=== PATIENT | male | born 1960 | race African-American/Black ===

== ENCOUNTER 2018-10-21 00:28 | Emergency (ER) | payer MEDICARE ==
[~2018-10-21] VITALS: Ht 162.6 cm; Wt 73.0 kg
[~2018-10-21 00:28] MED LIST: AUGMENTIN500TAB PO; METFORMIN500 MG PO
[2018-10-21] MEDS ORDERED: MOTRIN800 MG PO (00:48)
[2018-10-21] MEDS ORDERED: AMOXICILLIN500 MG PO (00:48)
[2018-10-21] MEDS ORDERED: TRAMADOL HCL50 MG PO (00:48)
[2018-10-21 01:00] VITALS: BP 137/89
== END 2018-10-21 00:58 | disposition home or self-care (01) ==
LOC: ED 00:28
DX: K02.9 Dental caries, unspecified (principal); K04.7 Periapical abscess without sinus; E11.9 Type 2 diabetes mellitus without complications; F17.210 Nicotine dependence, cigarettes, uncomplicated

== ENCOUNTER 2019-07-27 05:27 | Observation (INO) | payer MEDICARE ==
[~2019-07-27] VITALS: Ht 157.5 cm; Wt 67.6 kg
[2019-07-27] VITALS (7 sets, daily range): BP systolic 130–167; BP diastolic 76–91
[~2019-07-27 05:27] MED LIST changes: +AMOXICILLIN500 MG PO; +MOTRIN800 MG PO; +TRAMADOL HCL50 MG PO
--- NOTE | 2019-07-27 05:40 | NUR ---
PT. TO ROOM 10 VIA EMS WITH C/O HAVING BRONCHITIS AND AWAKINING THIS AM WITH SOB. BILATERAL LUNG STEEL ARE CTA, NO EDEMA NOTED TO BLE. O2 SAT ON RA 97%. EMS ADMINISTERED A BREATHING TX AND DEXAMETASONE IVP.
--- NOTE | 2019-07-27 05:56 | NUR ---
IV SOLU-MEDROL GIVEN PER MD ORDER.
[2019-07-27 06:31] LABS: HEMOGLOBIN 14.4 g/dl (14.0-18.0); IMMATURE GRANULOCYTES 0.3 % (0.0-5.0); MEAN CELL VOLUME 84.7 fL CALC (80.0-100.0); MEAN CORPUSCULAR HGB 27.1 pG CALC (26.0-32.0); NEUT# 2.53 thou/uL (1.82-7.42); RED BLOOD COUNT 5.31 mill/uL (4.70-6.10); RED CELL DISTRI WIDTH 13.5 % (11.5-15.5)
[2019-07-27 06:48] LABS: ALBUMIN 4.3 g/dL (3.2-5.0); ALKALINE PHOSPHATASE 132 u/l (38-126); ANION GAP 13 (6-22 (CALC)); BILIRUBIN, TOTAL 0.7 mg/dL (0.0-1.4); BUN 12 mg/dL (9-20); BUN/CREATININE RATIO 17 (12-20 (CALC)); CARBON DIOXIDE 28 mmol/l (22-30); CHLORIDE 99 mmol/l (95-108); CREATININE 0.7 mg/dL (0.7-1.3); GFR > 60 ML/MIN (>=60 (CALC)); GFR FOR AFR.AMER. > 60 ML/MIN (>=60 (CALC)); POTASSIUM 4.6 mmol/l (3.5-5.1); SGOT/AST 41 u/l (17-59); SODIUM 136 mmol/l (137-146); TOTAL PROTEIN 9.1 g/dL (6.3-8.2)
--- NOTE | 2019-07-27 06:58 | NUR ---
REPORT TO SUSHMA LEUNG.
[2019-07-27 07:00] LABS: MYOGLOBIN 48 ng/mL (0 - 121)
--- NOTE | 2019-07-27 07:00 | NUR ---
REPORT RECEIVED FROM XOCHITL PETER. EDP AT BEDSIDE TO DISCUSS RESULTS AND POSSIBLE ADMIT.
--- NOTE | 2019-07-27 07:01 | NUR ---
O2 SAT 93% PT. PLACED ON 2 LIT/NC. O2 SAT NOW 98%.
--- NOTE | 2019-07-27 07:40 | NUR ---
PATIENT INFORMED OF ADMIT STATUS AND IV ANTIBIOTICS. VERBAL UNDERSTANDING. WAITING ON ROOM NUMBER.
--- NOTE | 2019-07-27 08:00 | NUR ---
PATIENT SET UP WITH BREAKFAST TRAY.
--- NOTE | 2019-07-27 08:39 | NUR ---
ATTEMPT MADE TO CALL REPORT TO ICU, NO ANSWER. WILL CALL BACK.
--- NOTE | 2019-07-27 09:08 | NUR ---
SECOND ATTEMPT MADE TO CALL REPORT. NO ANSWER. CHARGE NURSE INFORMED.
--- NOTE | 2019-07-27 09:20 | NUR ---
REPORT GIVEN TO XOCHITL PHILLIPS.
--- NOTE | 2019-07-27 09:30 | NUR ---
PATIENT TRANSPORTED TO ICU VIA STRETCHER WITH MONITOR IN PLACE. XOCHITL PHILLIPS AT BEDSIDE. PATIENT IN STABLE CONDITION. CARE RELINQUISHED.
--- NOTE | 2019-07-27 09:30 | NUR ---
PT ADMITTED TO ICU BED 6 FOR MS/OF TO THE CARE OF DR. THOMAS FOR PNEUMONIA, COPD AND HYPOXIA. PT TRANSFERRED SELF TO BED FROM STRETCHER WITH STEADY GAIT. U/A OBTAINED/ PT A&OX4, ABLE TO MAKE NEEDS KNOWN. SA02@99% ON 2LPM VIA NC. RESPIRATIONS EVEN/UNLABORED, LS CLEAR THROUGHOUT. ABDOMEN SOFT, NON-TENDER. LBM 1-1-20. PT ORIENTED TO CALL LIGHT, ROOM AND UNIT. CALL LIGHT IN REACH. WILL MONITOR.
--- NOTE | 2019-07-27 10:00 | NUR ---
JOSH SALAZAR AT BEDSIDE FOR PAPERWORK/CONSULTATION
--- NOTE | 2019-07-27 10:47 | NUR ---
RT AT BEDSIDE FOR TX
[2019-07-27 10:51] LABS: URINE BILIRUBIN - DIPSTICK NEGATIVE (NEGATIVE); URINE BLOOD DIPSTICK NEGATIVE (NEGATIVE); URINE COLOR YELLOW; URINE GLUCOSE - DIPSTICK >=1000 mg/dL (NEGATIVE); URINE KETONE NEGATIVE (NEGATIVE); URINE LEUK ESTERASE NEGATIVE (NEGATIVE); URINE NITRITE - DIPSTICK NEGATIVE (Negative); URINE PH 6.5 (4.5-8.0); URINE PROTEIN - DIPSTICK NEGATIVE (NEG-TRACE); URINE UROBILINOGEN - DIPSTICK 0.2 E.U./dL (0.2)
--- NOTE | 2019-07-27 12:30 | NUR ---
PT RESTING IN BED WATCHING TV. PT DENIES SOB OR DISTRESS AT THIS TIME. REMAINS AFEBRILE.
--- NOTE | 2019-07-27 14:00 | NUR ---
PT GIVEN A COKE PER REQUEST.
--- NOTE | 2019-07-27 14:48 | NUR ---
RT AT BEDSIDE FOR TX.
--- NOTE | 2019-07-27 16:05 | NUR ---
PT GF CALLED WITH [employer], UPDATE GIVEN.
--- NOTE | 2019-07-27 20:00 | NUR ---
REPORT RECEIVED. ROUNDS AND ASSESSMENT COMPLETED AND DOCUMENTED. DENIES PAIN OR HAS ANY NEEDS AT THIS TIME. BREATH SOUNDS CLEAR AND DIMINISHED WITH O2 SAT 97% ON 2LNC. STEROID AND NEB THERAPY CONTINUE. PT REMAINS MED/SURG TELE PT. STATES DISCHARGE PLAN IS FOR AM PER HIS MD.
[2019-07-28 00:01] VITALS: BP 132/79
--- NOTE | 2019-07-28 00:06 | NUR ---
VITAL SIGNS REMAIN STABLE. RESTING WITH EYES CLOSED EASILY AROUSES FOR NECESSARY INTERVENTIONS. TAKING PO FLUIDS WELL AND VOIDS AT BEDSIDE URINAL.
[2019-07-28 03:57] VITALS: BP 167/83
--- NOTE | 2019-07-28 03:58 | NUR ---
RESTING QUIETLY MOST OF NIGHT. AWAKENS TO TAKE SIPS AND VOID. VSS AND AFEBRILE.
--- NOTE | 2019-07-28 08:00 | NUR ---
PT IS AWAKE, ALERT, ORIENTED X 3. LUNGS ARE CLEAR, 2 LPM NC. NO COMPLAINT OF SHORTNESS OF BREATH OR OTHERWISE. PT HOPES FOR DISCHARGE TODAY.
[2019-07-28 08:39] VITALS: BP 133/75
[2019-07-28] MEDS ORDERED: GLIPIZIDE10 M2 PO (09:30)
[2019-07-28] MEDS ORDERED: ATORVASTATIN CA10 MG PO (09:31)
[2019-07-28] MEDS ORDERED: LISINOPRIL10 MG PO (09:31)
[2019-07-28] MEDS ORDERED: CYCLOBENZAPR5 MG PO (09:31)
[2019-07-28] MEDS ORDERED: PREDNISONE10 MG PO (09:32)
[2019-07-28] MEDS ORDERED: METFORMIN1000 MG PO (09:32)
[2019-07-28] MEDS ORDERED: LEVAQUIN750 MG PO (09:33)
[2019-07-28] MEDS ORDERED: SPIRIVA RE2.5 MCG/AC IN (09:34)
--- NOTE | 2019-07-28 10:00 | NUR ---
PT SEEN BY DR YANEZ, TO BE DISCHARGED HOME AFTER ABX. PT PROVIDED INFORMATION COUPON FOR [employer].
[2019-07-28] MEDS ORDERED: ROBITUSSIN AC10 ML PO (10:11)
--- NOTE | 2019-07-28 11:30 | NUR ---
PT HAS BEEN DISCHARGED TO HOME. PT VERBALIZES UNDERSTANDING OF DC INSTRUCTIONS, TAKEN TO LOBBY VIA WHEELCHAIR. PT LEAVES [facility] IN STABLE CONDITION.
== END 2019-07-28 11:30 | disposition home or self-care (01) ==
LOC: ED 05:27 → ED-I 06:52 → ED 07:09 → ED-I 07:10 → ICU 07:10
PROVIDERS: Emergency Medicine; Nurse Practitioner Family; ADMIT Internal Medicine; ATTEND Internal Medicine
DX: J44.1 Chronic obstructive pulmonary disease with (acute) exacerbation (principal); J18.9 Pneumonia, unspecified organism; J44.0 Chronic obstructive pulmonary disease with (acute) lower respiratory infection; E11.65 Type 2 diabetes mellitus with hyperglycemia; I10 Essential (primary) hypertension; R09.02 Hypoxemia; F17.200 Nicotine dependence, unspecified, uncomplicated; G89.29 Other chronic pain; Z79.84 Long term (current) use of oral hypoglycemic drugs

== ENCOUNTER 2022-09-18 11:26 | Emergency (ER) | payer MEDICARE ==
[~2022-09-18] VITALS: Ht 165.1 cm; Wt 50.0 kg
[2022-09-18] VITALS (12 sets, daily range): BP systolic 124–161; BP diastolic 79–117
[~2022-09-18 11:26] MED LIST changes: +ATORVASTATIN CA10 MG PO; +CYCLOBENZAPR5 MG PO; +CYCLOBENZAPRINE10 MG PO; +GLIPIZIDE10 M2 PO; +LEVAQUIN750 MG PO; +LISINOPRIL10 MG PO; +METFORMIN1000 MG PO; +METFORMIN500 M2 PO; +NAPROXEN EC500 MG PO; +NORVASC5 M1 PO; +PREDNISONE10 MG PO; +PROAIR HFA108 MCG/AC; +ROBITUSSIN AC10 ML PO; +ROSUVASTATIN CA10 MG; +SPIRIVA RE2.5 MCG/AC IN
[2022-09-18 12:08] LABS: BASO% 0.3 % (0-3); EOS% 2.3 % (0-8); HEMATOCRIT 42.6 % (39.0-50.0); HEMOGLOBIN 13.4 g/dl (14.0-18.0); IMMATURE GRANULOCYTES 0.1 % (0.0-5.0); LYMPH% 35.1 % (15-41); MEAN CELL VOLUME 87.3 fL CALC (80.0-100.0); MEAN CORPUSCULAR HGB 27.5 pG CALC (26.0-32.0); MEAN CORPUSCULAR HGB CONC 31.5 g/dL CAL (32.0-36.0); MONO% 9.1 % (2-13); NEUT# 3.68 thou/uL (1.82-7.42); NEUT% 53.1 % (42-76); RED BLOOD COUNT 4.88 mill/uL (4.70-6.10); RED CELL DISTRI WIDTH 13.7 % (11.5-15.5)
[2022-09-18 13:02] LABS: ALBUMIN 4.4 g/dL (3.2-5.0); ALKALINE PHOSPHATASE 114 u/l (38-126); ANION GAP 8 (6-22 (CALC)); BUN 14 mg/dL (8-23); BUN/CREATININE RATIO 17 (12-20 (CALC)); CARBON DIOXIDE 31 mmol/l (22-30); CHLORIDE 106 mmol/l (95-108); CREATININE 0.8 mg/dL (0.7-1.3); GFR FOR AFR.AMER. > 60 ML/MIN (>=60 (CALC)); GFR OTHER RACES > 60 ML/MIN (>=60 (CALC)); LIPASE 32 u/l (23-300); POTASSIUM 3.7 mmol/l (3.5-5.1); SGOT/AST 38 u/l (19-48); SODIUM 141 mmol/l (137-146)
[2022-09-18 13:03] LABS: BILIRUBIN, TOTAL 0.3 mg/dL (0.2-1.3)
[2022-09-18 13:47] LABS: URINE BILIRUBIN - DIPSTICK NEGATIVE (NEGATIVE); URINE BLOOD DIPSTICK NEGATIVE (NEGATIVE); URINE CLARITY CLEAR; URINE COLOR YELLOW; URINE GLUCOSE - DIPSTICK NEGATIVE (NEGATIVE); URINE KETONE NEGATIVE (NEGATIVE); URINE LEUK ESTERASE NEGATIVE (Negative); URINE NITRITE - DIPSTICK NEGATIVE (Negative); URINE PROTEIN - DIPSTICK NEGATIVE (NEG-TRACE); URINE UROBILINOGEN - DIPSTICK 0.2 E.U./dL (0.2)
[2022-09-18] MEDS ORDERED: DOXYCYCLINE100 MG PO (15:34)
[2022-09-18] MEDS ORDERED: DECADRON4 MG PO (15:34)
== END 2022-09-18 16:21 | disposition home or self-care (01) ==
LOC: ED 11:26
PROVIDERS: Emergency Medicine
DX: J44.1 Chronic obstructive pulmonary disease with (acute) exacerbation (principal); E11.9 Type 2 diabetes mellitus without complications; F17.200 Nicotine dependence, unspecified, uncomplicated; Z79.84 Long term (current) use of oral hypoglycemic drugs; Z20.822 Contact with and (suspected) exposure to COVID-19

== ENCOUNTER 2022-11-24 14:20 | Emergency (ER) | payer MEDICARE ==
[~2022-11-24] VITALS: Ht 165.1 cm; Wt 61.0 kg
[~2022-11-24 14:20] MED LIST changes: +DECADRON4 MG PO; +DOXYCYCLINE100 MG PO
[2022-11-24 14:50] LABS: BASO% 0.6 % (0-3); EOS% 2.2 % (0-8); HEMOGLOBIN 13.6 g/dl (14.0-18.0); IMMATURE GRANULOCYTES 0.1 % (0.0-5.0); LYMPH% 37.7 % (15-41); MEAN CELL VOLUME 87.9 fL CALC (80.0-100.0); MEAN CORPUSCULAR HGB 27.8 pG CALC (26.0-32.0); MEAN CORPUSCULAR HGB CONC 31.6 g/dL CAL (32.0-36.0); MONO% 8.8 % (2-13); NEUT# 3.5 thou/uL (1.82-7.42); NEUT% 50.6 % (42-76); RED BLOOD COUNT 4.89 mill/uL (4.70-6.10); RED CELL DISTRI WIDTH 13.8 % (11.5-15.5)
[2022-11-24 15:20] LABS: ALBUMIN 4.4 g/dL (3.2-5.0); ALKALINE PHOSPHATASE 116 u/l (38-126); ANION GAP 12 (6-22 (CALC)); BILIRUBIN, TOTAL 0.3 mg/dL (0.2-1.3); BUN 9 mg/dL (8-23); BUN/CREATININE RATIO 11 (12-20 (CALC)); CARBON DIOXIDE 28 mmol/l (22-30); CHLORIDE 104 mmol/l (95-108); CREATININE 0.8 mg/dL (0.7-1.3); GFR FOR AFR.AMER. > 60 ML/MIN (>=60 (CALC)); GFR OTHER RACES > 60 ML/MIN (>=60 (CALC)); POTASSIUM 3.8 mmol/l (3.5-5.1); SGOT/AST 26 u/l (19-48); SODIUM 140 mmol/l (137-146); TOTAL PROTEIN 8.1 g/dL (6.3-8.2)
[2022-11-24] MEDS ORDERED: ASPIRIN 81 LOW81 MG PO (18:56)
[2022-11-24 19:12] VITALS: BP 141/75
== END 2022-11-24 19:14 | disposition home or self-care (01) ==
LOC: ED 14:20
PROVIDERS: Nurse Practitioner
DX: R07.89 Other chest pain (principal); I10 Essential (primary) hypertension; E11.9 Type 2 diabetes mellitus without complications; E78.5 Hyperlipidemia, unspecified; J44.9 Chronic obstructive pulmonary disease, unspecified; F17.200 Nicotine dependence, unspecified, uncomplicated; R94.31 Abnormal electrocardiogram [ECG] [EKG]

== ENCOUNTER 2023-02-04 03:23 | Observation (INO) | payer MEDICARE ==
[~2023-02-04] VITALS: Ht 165.1 cm; Wt 61.0 kg
[~2023-02-04 03:23] MED LIST changes: +ASPIRIN 81 LOW81 MG PO
[2023-02-04 04:14] LABS: BASO% 0.4 % (0-3); HEMATOCRIT 38.3 % (39.0-50.0); IMMATURE GRANULOCYTES 0.7 % (0.0-5.0); LYMPH% 27.6 % (15-41); MEAN CELL VOLUME 88.5 fL CALC (80.0-100.0); MEAN CORPUSCULAR HGB 27.7 pG CALC (26.0-32.0); MEAN CORPUSCULAR HGB CONC 31.3 g/dL CAL (32.0-36.0); NEUT# 4.53 thou/uL (1.82-7.42); NEUT% 61.3 % (42-76); RED BLOOD COUNT 4.33 mill/uL (4.70-6.10); RED CELL DISTRI WIDTH 13.4 % (11.5-15.5)
[2023-02-04 04:28] LABS: ALBUMIN 3.9 g/dL (3.2-5.0); ALKALINE PHOSPHATASE 118 u/l (38-126); ANION GAP 9 (6-22 (CALC)); BUN 12 mg/dL (8-23); BUN/CREATININE RATIO 12 (12-20 (CALC)); CARBON DIOXIDE 28 mmol/l (22-30); CHLORIDE 108 mmol/l (95-108); GFR FOR AFR.AMER. > 60 ML/MIN (>=60 (CALC)); GFR OTHER RACES > 60 ML/MIN (>=60 (CALC)); POTASSIUM 4.1 mmol/l (3.5-5.1); SODIUM 141 mmol/l (137-146); TOTAL PROTEIN 7.2 g/dL (6.3-8.2)
[2023-02-04 04:32] LABS: BILIRUBIN, TOTAL 0.5 mg/dL (0.2-1.3); SGOT/AST 54 u/l (19-48)
[2023-02-04 07:33] VITALS: BP 141/80
[2023-02-04 07:44] VITALS: BP 141/80
[2023-02-04 10:58] VITALS: BP 139/83
[2023-02-04 14:38] VITALS: BP 139/75
[2023-02-04 18:55] VITALS: BP 132/70
[2023-02-04 23:56] VITALS: BP 136/79
[2023-02-05 04:39] VITALS: BP 133/77
[2023-02-05 05:41] LABS: HEMATOCRIT 38.2 % (39.0-50.0); HEMOGLOBIN 11.9 g/dl (14.0-18.0); MEAN CELL VOLUME 87.4 fL CALC (80.0-100.0); MEAN CORPUSCULAR HGB 27.2 pG CALC (26.0-32.0); MEAN CORPUSCULAR HGB CONC 31.2 g/dL CAL (32.0-36.0); RED BLOOD COUNT 4.37 mill/uL (4.70-6.10); RED CELL DISTRI WIDTH 13.3 % (11.5-15.5)
[2023-02-05 06:06] LABS: ANION GAP 11 (6-22 (CALC)); BUN 12 mg/dL (8-23); BUN/CREATININE RATIO 18 (12-20 (CALC)); CALCULATED LDLCHOLESTEROL 77 mg/dL (62-129 (CALC)); CARBON DIOXIDE 26 mmol/l (22-30); CHLORIDE 105 mmol/l (95-108); CHOLESTEROL HDL RATIO 2.7 (<4.4 (CALC)); CREATININE 0.7 mg/dL (0.7-1.3); GFR FOR AFR.AMER. > 60 ML/MIN (>=60 (CALC)); GFR OTHER RACES > 60 ML/MIN (>=60 (CALC)); HDL CHOLESTEROL 50 mg/dL (39.0-59.0); MAGNESIUM 2.3 mg/dL (1.6-2.3); POTASSIUM 4.6 mmol/l (3.5-5.1); SODIUM 138 mmol/l (137-146); TOTAL CHOLESTEROL 136 mg/dl (0-199); TOTAL TRIGLYCERIDES 43 mg/dl (0-149); VLDL CHOLESTROL 9 mg/dl (4-45 (CALC))
[2023-02-05 06:15] VITALS: BP 153/83
[2023-02-05 08:00] VITALS: BP 153/83
[2023-02-05 10:15] VITALS: BP 142/86
[2023-02-05 10:45] LABS: BASO% 0.1 % (0-3); HEMATOCRIT 39.9 % (39.0-50.0); HEMOGLOBIN 12.5 g/dl (14.0-18.0); IMMATURE GRANULOCYTES 0.2 % (0.0-5.0); MEAN CELL VOLUME 86.7 fL CALC (80.0-100.0); MEAN CORPUSCULAR HGB 27.2 pG CALC (26.0-32.0); MEAN CORPUSCULAR HGB CONC 31.3 g/dL CAL (32.0-36.0); MONO% 4.6 % (2-13); NEUT# 8.65 thou/uL (1.82-7.42); NEUT% 84.1 % (42-76); RED BLOOD COUNT 4.6 mill/uL (4.70-6.10); RED CELL DISTRI WIDTH 13.2 % (11.5-15.5)
[2023-02-05 11:05] LABS: ACT PARTIAL THROMBO TIME 23.1 SECONDS (20.0-32.5); INTERNATIONAL NORMALIZED RATIO 1.1 RATIO (0.7-1.3); PROTHROMBIN TIME 10.6 SECONDS (9.0-12.5)
[2023-02-05 11:06] VITALS: BP 147/84
[2023-02-05 11:17] VITALS: BP 147/89
== END 2023-02-05 11:50 | disposition short-term general hospital (02) ==
LOC: ED 03:23 → MS2 06:05 → ICU 02-05 10:30
PROVIDERS: Family Medicine; ADMIT Internal Medicine; ATTEND Internal Medicine
PROC: 5A09357 Assistance with Respiratory Ventilation, Less than 24 Consecutive Hours, Continuous Positive Airway Pressure (ICD-10-PCS; principal; 2023-02-04)
DX: I21.3 ST elevation (STEMI) myocardial infarction of unspecified site (principal); J96.01 Acute respiratory failure with hypoxia; J44.1 Chronic obstructive pulmonary disease with (acute) exacerbation; I10 Essential (primary) hypertension; E11.9 Type 2 diabetes mellitus without complications; F17.200 Nicotine dependence, unspecified, uncomplicated; G89.29 Other chronic pain
CPT/HCPCS: J1644; J1650

== ENCOUNTER 2024-01-22 10:12 | Emergency (ER) | payer OTHER ==
[~2024-01-22] VITALS: Ht 157.5 cm; Wt 65.7 kg
[~2024-01-22 10:12] MED LIST changes: +BREZTRI AEROSPH1 AER; +CARVEDILOL6.25 MG PO; +COZAAR25 MG PO; +EQ ASPIRIN81 MG PO; +FEROSUL325 MG; +GLIPIZIDE5 M2 PO; +LEVOTHYROXIN50 MC1 PO; +LOSARTAN POTASS25 MG PO; +PLAVIX75 MG PO; +PRASUGREL10 MG PO; +PREDNISONE20 MG PO; +PROAIR RES108 MCG/AC; +PROTONIX40 M2 PO; +ROSUVASTATIN CA10 MG PO; +SPIRIVA RE2.5 MCG/AC; +ZITHROMAX250 MG PO
[2024-01-22 10:19] VITALS: BP 144/74
[2024-01-22 10:46] VITALS: BP 130/59
[2024-01-22 10:48] LABS: BASO% 0.8 % (0-3); EOS% 4.9 % (0-8); HEMATOCRIT 25.7 % (39.0-50.0); HEMOGLOBIN 7.4 g/dl (14.0-18.0); IMMATURE GRANULOCYTES 0.2 % (0.0-5.0); LYMPH% 32.6 % (15-41); MEAN CELL VOLUME 63.3 fL CALC (80.0-100.0); MEAN CORPUSCULAR HGB 18.2 pG CALC (26.0-32.0); MEAN CORPUSCULAR HGB CONC 28.8 g/dL CAL (32.0-36.0); MONO% 11.4 % (2-13); NEUT# 2.64 thou/uL (1.82-7.42); NEUT% 50.1 % (42-76); RED BLOOD COUNT 4.06 mill/uL (4.70-6.10); RED CELL DISTRI WIDTH 20.9 % (11.5-15.5)
[2024-01-22 11:00] VITALS: BP 134/73
[2024-01-22 11:03] LABS: INTERNATIONAL NORMALIZED RATIO 1.1 RATIO (0.7-1.3)
[2024-01-22 11:05] LABS: ALBUMIN 3.9 g/dL (3.2-5.0); BILIRUBIN, TOTAL 0.5 mg/dL (0.2-1.3); PROTHROMBIN TIME 10.4 SECONDS (9.0-12.5); TOTAL PROTEIN 7.6 g/dL (6.3-8.2)
[2024-01-22 11:16] VITALS: BP 130/66
[2024-01-22 11:18] VITALS: BP 130/66
[2024-01-22] MEDS ORDERED: FERROUS SULF325 M3 PO (11:28)
== END 2024-01-22 11:34 | disposition home or self-care (01) | DRG 812 ==
LOC: ED 10:12
PROVIDERS: Family Medicine
DX: D64.9 Anemia, unspecified (principal); I10 Essential (primary) hypertension; E11.9 Type 2 diabetes mellitus without complications; J44.9 Chronic obstructive pulmonary disease, unspecified; I25.10 Atherosclerotic heart disease of native coronary artery without angina pectoris; I25.2 Old myocardial infarction; F17.200 Nicotine dependence, unspecified, uncomplicated; Z95.5 Presence of coronary angioplasty implant and graft; Z99.81 Dependence on supplemental oxygen; Z79.84 Long term (current) use of oral hypoglycemic drugs

== ENCOUNTER 2024-03-21 08:08 | Day surgery (SDC) | payer MEDICARE ==
[~2024-03-21] VITALS: Ht 160 cm; Wt 64.0 kg
[~2024-03-21 08:08] MED LIST changes: +FERROUS SULF325 M3 PO; +MOUNJARO2.5 MG
[2024-03-21] MEDS ORDERED: FAMOTIDINE 10MG/ML 2ML SDV IV ONE (08:11)
[2024-03-21] MEDS ORDERED: SODIUM CHLORIDE 0.9% 1,000 ML IV ONE (08:12)
[2024-03-21 10:14] VITALS: BP 113/81
[2024-03-21] MEDS ORDERED: LIDOCAINE HCL 2% 2ML SDV IV ONE (12:14)
[2024-03-21] MEDS ORDERED: PROPOFOL 200 MG/20 ML VIAL IV ONE (12:14)
== END 2024-03-21 10:23 | disposition home or self-care (01) ==
LOC: ENDO 08:08
PROVIDERS: ATTEND Internal Medicine Gastroenterology
PROC: 0DBK8ZX Excision of Ascending Colon, Via Natural or Artificial Opening Endoscopic, Diagnostic (ICD-10-PCS; principal; 2024-03-21)
PROC: 0DBN8ZX Excision of Sigmoid Colon, Via Natural or Artificial Opening Endoscopic, Diagnostic (ICD-10-PCS; 2024-03-21)
PROC: 0DBM8ZX Excision of Descending Colon, Via Natural or Artificial Opening Endoscopic, Diagnostic (ICD-10-PCS; 2024-03-21)
PROC: 0DBH8ZX Excision of Cecum, Via Natural or Artificial Opening Endoscopic, Diagnostic (ICD-10-PCS; 2024-03-21)
PROC: 0DB98ZX Excision of Duodenum, Via Natural or Artificial Opening Endoscopic, Diagnostic (ICD-10-PCS; 2024-03-21)
PROC: 0DB78ZX Excision of Stomach, Pylorus, Via Natural or Artificial Opening Endoscopic, Diagnostic (ICD-10-PCS; 2024-03-21)
DX: D12.2 Benign neoplasm of ascending colon (principal); D12.0 Benign neoplasm of cecum; D12.4 Benign neoplasm of descending colon; D12.5 Benign neoplasm of sigmoid colon; K64.8 Other hemorrhoids; K29.51 Unspecified chronic gastritis with bleeding; D50.8 Other iron deficiency anemias; I10 Essential (primary) hypertension; E11.9 Type 2 diabetes mellitus without complications; J44.9 Chronic obstructive pulmonary disease, unspecified; K21.9 Gastro-esophageal reflux disease without esophagitis; Z95.5 Presence of coronary angioplasty implant and graft; Z87.891 Personal history of nicotine dependence; Z79.85 Long-term (current) use of injectable non-insulin antidiabetic drugs

== ENCOUNTER 2024-04-25 13:45 | Emergency (ER) | payer OTHER, MEDICARE ==
[2024-04-25] VITALS (34 sets, daily range): BP systolic 120–181; BP diastolic 58–97
[~2024-04-25] VITALS: Ht 160 cm; Wt 72.5 kg
[2024-04-25 14:16] LABS: HEMATOCRIT 27.7 % (39.0-50.0); HEMOGLOBIN 7.7 g/dl (14.0-18.0); IMMATURE GRANULOCYTES 0.2 % (0.0-5.0); LYMPH% 22.9 % (15-41); MEAN CELL VOLUME 64.7 fL CALC (80.0-100.0); MEAN CORPUSCULAR HGB CONC 27.8 g/dL CAL (32.0-36.0); MONO% 8.5 % (2-13); NEUT# 3.93 thou/uL (1.82-7.42); NEUT% 63.4 % (42-76); RED BLOOD COUNT 4.28 mill/uL (4.70-6.10); RED CELL DISTRI WIDTH 22.4 % (11.5-15.5)
[2024-04-25 15:20] LABS: ALBUMIN 4.5 g/dL (3.2-5.0); BILIRUBIN, TOTAL 0.6 mg/dL (0.2-1.3); CREATININE 0.9 mg/dL (0.7-1.3); POTASSIUM 4.4 mmol/l (3.5-5.1); TOTAL PROTEIN 8.2 g/dL (6.3-8.2)
[2024-04-25] MEDS ORDERED: SODIUM CHLORIDE 0.9% 500 ML IV ONE (15:50)
[2024-04-25] MEDS ORDERED: FERROUS SULF325 M3 PO (16:27)
[2024-04-25] MEDS ORDERED: FUROSEMIDE 40 MG/4 ML SDV IV ONE ×2 (17:30→20:50)
== END 2024-04-25 19:00 | disposition home or self-care (01) | DRG 812 ==
LOC: ED 13:45
PROVIDERS: Family Medicine
PROC: 30233N1 Transfusion of Nonautologous Red Blood Cells into Peripheral Vein, Percutaneous Approach (ICD-10-PCS; principal; 2024-04-25)
DX: D50.9 Iron deficiency anemia, unspecified (principal); I10 Essential (primary) hypertension; E11.9 Type 2 diabetes mellitus without complications; J44.9 Chronic obstructive pulmonary disease, unspecified; I25.10 Atherosclerotic heart disease of native coronary artery without angina pectoris; Z99.81 Dependence on supplemental oxygen; Z79.85 Long-term (current) use of injectable non-insulin antidiabetic drugs
CPT/HCPCS: P9016